=== PATIENT | male | born 1975 | race Caucasian/White ===

== ENCOUNTER 2017-08-11 10:28 | Emergency (ER) | payer OTHER ==
[2017-08-11 10:45] VITALS: BP 157/96; PULSE 85; TEMP 98.7; BMI 24.3
[2017-08-11] MEDS ORDERED: LIDOCAINE 5% TOPICAL PATCH TP ONE (12:54)
[2017-08-11] MEDS ORDERED: KETOROLAC TROMETHAMINE 30 MG/1 ML VIAL IM ONE (12:54)
[2017-08-11] MEDS ORDERED: CYCLOBENZAPRINE HCL 10 MG TABLET (FP) PO ONE (12:55)
[2017-08-11] MEDS ORDERED: LIDOCAINE 5% TOPICAL PATCH ONE (12:56)
[2017-08-11] MEDS ORDERED: CYCLOBENZAPRINE HCL 10 MG TABLET (FP) ONE (12:56)
[2017-08-11] MEDS ORDERED: KETOROLAC TROMETHAMINE 30 MG/1 ML VIAL ONE (12:57)
--- NOTE | 2017-08-11 13:08 | PDOC ---
History of Present Illness <Claudia Posadas - Last Filed: 08/11/17 13:39> - General History Source: Patient, Parent(s) Exam Limitations: No Limitations - History of Present Illness Initial Comments: 08/11/17 12:56 Patient is a 16-year-old male with history of alcohol abuse, deaf, mute, c/o left back pain x 1 month that radiates down the left leg. States his pain level fluctuates between 4-10/10. States that walking makes the pain worse. Has been walking with a cane. Has not seen anyone for the pain but has been using a Diclofenac equivalent med from the DR for the pain. There is no bladder or bowel incontinence PMD: Does not remember name PMHX: as above PSOCHX: (+) cig 2PPD, (+) etoh, (-) drug GENERAL/CONSTITUTIONAL: [No fever or chills. No weakness. No weight change.] HEAD, EYES, EARS, NOSE AND THROAT: [No change in vision. No ear pain or discharge. No sore throat.] CARDIOVASCULAR: [No chest pain or shortness of breath.] RESPIRATORY: [No cough, wheezing, or hemoptysis.] GASTROINTESTINAL: [No nausea, vomiting, diarrhea or constipation. No rectal bleeding.] GENITOURINARY: [No dysuria, frequency, or change in urination.] MUSCULOSKELETAL: [No joint or muscle swelling or pain. No neck (+) back pain.] SKIN AND BREASTS: [No rash or easy bruising.] NEUROLOGIC: [No headache, vertigo, loss of consciousness, or loss of sensation.] PSYCHIATRIC: [No depression or anxiety.] ENDOCRINE: [No increased thirst. No abnormal weight change.] HEMATOLOGIC/LYMPHATIC: [No anemia, easy bleeding, or history of blood clots.] ALLERGIC/IMMUNOLOGIC: [No hives or skin allergy. No latex allergy.] GENERAL: [The patient is awake, alert, and fully oriented, in no acute distress. ] HEAD: [Normal with no signs of trauma.] EYES: [Pupils equal, round and reactive to light, extraocular movements intact, sclera anicteric, conjunctiva clear.] ENT: [Ears normal, nares patent, oropharynx clear without exudates. Moist mucous membranes.] NECK: [Normal range of motion, supple without lymphadenopathy, JVD, or masses.] LUNGS: [Breath sounds equal, clear to auscultation bilaterally. No wheezes, and no crackles.] HEART: [Regular rate and rhythm, normal S1 and S2 without murmur, rub.] ABDOMEN: [Soft, nontender, normoactive bowel sounds. No guarding, no rebound. No masses.] BACK: tenderness to the left paraspinal to palp EXTREMITIES: decreased range of motion or the right leg, (+) tenderness to the left buttock , no edema. No clubbing or cyanosis. No cords, erythema, or tenderness.] NEUROLOGICAL: [Cranial nerves II through XII grossly intact. Normal speech, anthalgic gait.] PSYCH: [Normal mood, normal affect.] SKIN: [Warm, Dry, normal turgor, no rashes or lesions noted.] <Vinay Steiner - Last Filed: 08/11/17 16:42> - General Chief Complaint: Back Pain Stated Complaint: BACK PAIN Time Seen by Provider: 08/11/17 12:29 Past History <Claudia Posadas - Last Filed: 08/11/17 13:39> - Past Medical History COPD: No Other medical history: DENIES. - Surgical History Abdominal Surgery: Yes (HERNIA REPAIRX2) - Suicide/Smoking/Psychosocial Hx Smoking History: Current every day smoker Have you smoked in the past 12 months: Yes Number of Cigarettes Smoked Daily: 40 Information on smoking cessation initiated: No <Vinay Steiner - Last Filed: 08/11/17 16:42> - Past Medical History Allergies/Adverse Reactions: Allergies Allergy/AdvReac Type Severity Reaction Status Date / Time No Known Allergies Allergy Verified 08/11/17 10:40 Home Medications: Ambulatory Orders Cyclobenzaprine HCl [Flexeril -] 10 mg PO TID #21 tablet 08/11/17 Diclofenac Sodium [Voltaren -] 25 mg PO QID #28 tablet. 08/11/17 *Physical Exam - Vital Signs Last Vital Signs Temp Pulse Resp BP Pulse Ox 98.7 F 85 19 157/96 99 08/11/17 10:40 08/11/17 10:40 08/11/17 10:40 08/11/17 10:40 08/11/17 10:40 - Physical Exam Comments: 08/11/17 13:39 GENERAL: Awake, alert, and fully oriented, in no acute distress HEAD: No signs of trauma EYES: PERRLA, EOMI, sclera anicteric, conjunctiva clear ENT: Auricles normal inspection, hearing grossly normal, nares patent, oropharynx clear without exudates. Moist mucosa NECK: Normal ROM, supple, no lymphadenopathy, JVD, or masses LUNGS: Breath sounds equal, clear to auscultation bilaterally. No wheezes, and no crackles HEART: Regular rate and rhythm, normal S1 and S2, no murmurs, rubs or gallops ABDOMEN: Soft, nontender, normoactive bowel sounds. No guarding, no rebound. No masses EXTREMITIES:(+) straight leg raise 10 degree on left leg, 45 degrees on right leg. Normal range of motion, no edema. No clubbing or cyanosis. No cords, erythema, or tenderness NEUROLOGICAL: (+)Left sided paraspinal tenderness. Tenderness to left buttok .Cranial nerves II through XII grossly intact. Normal speech, antalgic gait. Sensory in tact. SKIN: Warm, Dry, normal turgor, no rashes or lesions noted. <Claudia Posadas - Last Filed: 08/11/17 13:39> - Vital Signs Last Vital Signs Temp Pulse Resp BP Pulse Ox 98.7 F 85 19 157/96 99 08/11/17 10:40 08/11/17 10:40 08/11/17 10:40 08/11/17 10:40 08/11/17 10:40 <Vinay Steiner - Last Filed: 08/11/17 16:42> Moderate Sedation - Procedure Monitoring Vital Signs: Vital Signs Temp Pulse Resp BP Pulse Ox 98.7 F 85 19 157/96 99 08/11/17 10:40 08/11/17 10:40 08/11/17 10:40 08/11/17 10:40 08/11/17 10:40 <Claudia Posadas - Last Filed: 08/11/17 13:39> - Procedure Monitoring Vital Signs: Vital Signs Temp Pulse Resp BP Pulse Ox 98.7 F 85 19 157/96 99 08/11/17 10:40 08/11/17 10:40 08/11/17 10:40 08/11/17 10:40 08/11/17 10:40 <Vinay Steiner - Last Filed: 08/11/17 16:42> ED Treatment Course - Medications Given in the ED: ED Medications Discontinued Medications Generic Name Dose Route Start Last Admin Trade Name Edgar PRN Reason Stop Dose Admin Cyclobenzaprine HCl 10 mg 08/11/17 12:55 08/11/17 13:05 Flexeril - PO 08/11/17 12:56 10 mg ONCE ONE Administration Ketorolac Tromethamine 30 mg 08/11/17 12:54 08/11/17 13:05 Toradol Injection - IM 08/11/17 12:55 30 mg ONCE ONE Administration Lidocaine 1 patch 08/11/17 12:54 08/11/17 13:05 Lidoderm Patch - TP 08/11/17 12:55 1 patch ONCE ONE Administration <Claudia Posadas - Last Filed: 08/11/17 13:39> - RADIOLOGY Radiology Studies Ordered: Category Date Time Status SPINE-LUMBAR ONLY [RAD] Stat Radiology 08/11/17 12:54 Ordered <Vinay Steiner - Last Filed: 08/11/17 16:42> Medical Decision Making - Medical Decision Making 08/11/17 12:56 Patient is a 16-year-old male with history of alcohol abuse, deaf, mute, c/o left back pain x 1 month that radiates down the left leg, consistent with sciatica. lumbar spine xray, toradol 60mg IM, flexeril, lidoderm patch UA r/o UTI 08/11/17 14:27 UA negative for any infectious process Vision symptoms improved at the time of discharge states this pain is 4/10 I discussed the physical exam findings, ancillary test results and final diagnoses with the patient. I answered all of the patient's questions. The patient was satisfied with the care received and felt comfortable with the discharge plan and treatment plan. The Patient agrees to follow up with the primary care physician within 24-72 hours. He should advise that he should not drink went on the pain medications due to GI distress, ulcers. <Vinay Steiner - Last Filed: 08/11/17 16:42> *DC/Admit/Observation/Transfer - Attestations Scribe Attestion: 08/11/17 13:39 Documentation prepared by Claudia Posadas, acting as medical radiation dosimetrist for Jose M Berman MD. <Claudia Posadas - Last Filed: 08/11/17 13:39> <Vinay Steiner - Last Filed: 08/11/17 16:42> Diagnosis at time of Disposition: Sciatica of left side - Discharge Dispostion Disposition: HOME Condition at time of disposition: Stable - Prescriptions Prescriptions: Cyclobenzaprine HCl [Flexeril -] 10 mg PO TID #21 tablet Diclofenac Sodium [Voltaren -] 25 mg PO QID #28 tablet.dr - Referrals Referrals: Gabino Mello MD [Staff Physician] - López Lubin MD [Staff Physician] - - Patient Instructions Printed Discharge Instructions: DI for Back Pain With Sciatica Additional Instructions: Your Discharge Instructions: You must call primary care physician within 24 hours to arrange follow-up. Return to the Emergency Department with any new, persistent or worsening symptoms, for fever, chills, SOB, dizziness or any other concerning changes that may occur. Follow-up with orthopedics and neurosurgery if you have back pain persists. Following numbness and tingling, bowel or bladder incontinence return to the emergency room immediately.
[2017-08-11 14:25] LABS: URINE APPEARANCE CLEAR; URINE BILIRUBIN NEGATIVE (<2.0 mg/dL); URINE COLOR DK YELLOW; URINE GLUCOSE (UA) NEGATIVE (NEGATIVE); URINE KETONE TRACE (NEGATIVE); URINE LEUK ESTERASE NEGATIVE (NEGATIVE); URINE NITRITE NEGATIVE (NEGATIVE); URINE PROTEIN NEGATIVE (NEGATIVE)
[2017-08-11] MEDS ORDERED: LIDOCAINE PATCH REMOVAL MC SCH (22:00)
== END 2017-08-11 14:54 | disposition home or self-care (01) ==
LOC: JERFT 10:28
PROC: 3E0233Z Introduction of Anti-inflammatory into Muscle, Percutaneous Approach (ICD-10-PCS; principal; 2017-08-11)
DX: M54.42 Lumbago with sciatica, left side (principal); F10.10 Alcohol abuse, uncomplicated; H91.3 Deaf nonspeaking, not elsewhere classified
CPT/HCPCS: 72100-TC-FY; 81003; 96372; 99281-25